=== PATIENT | male | born 1965 ===

== ENCOUNTER 2019-06-22 10:47 | Emergency (ER) | payer OTHER ==
[~2019-06-22] VITALS: Ht 180.3 cm; Wt 93.0 kg
[~2019-06-22 10:47] MED LIST: ATORVASTATIN CA10 MG; COZAAR100 MG; MEDROLPACK PO; METFORMIN HCL500 MG; ZYRTEC10 MG PO; [UNRECOGNIZED DRUG - REMARK]
== END 2019-06-22 14:43 | disposition home or self-care (01) ==
LOC: ER 10:47
DX: L03.114 Cellulitis of left upper limb (principal); T63.444A Toxic effect of venom of bees, undetermined, initial encounter; Y92.89 Other specified places as the place of occurrence of the external cause

== ENCOUNTER 2023-02-21 17:47 | Emergency (ER) | payer OTHER ==
[~2023-02-21] VITALS: Ht 177.8 cm; Wt 86.2 kg
[2023-02-21] MEDS ORDERED: TOPROL XL100 M1 (19:51)
[2023-02-21] MEDS ORDERED: CHILDREN'S ASPI81 MG (19:51)
[2023-02-21] MEDS ORDERED: METFORMIN HCL1000 M2 (19:51)
[2023-02-21] MEDS ORDERED: DUI500 PO (22:24)
== END 2023-02-21 23:04 | disposition home or self-care (01) ==
LOC: ER 17:47
DX: S61.422A Laceration with foreign body of left hand, initial encounter (principal); I25.10 Atherosclerotic heart disease of native coronary artery without angina pectoris; W45.8XXA Other foreign body or object entering through skin, initial encounter; Y93.89 Activity, other specified; Y92.015 Private garage of single-family (private) house as the place of occurrence of the external cause; Y99.8 Other external cause status; Z91.041 Radiographic dye allergy status